=== PATIENT | female | born 1985 | race Caucasian/White ===

== ENCOUNTER → 2017-06-22 | Outpatient (CLI) | payer OTHER ==
[~2017-06-22] MED LIST: CHOL100010 PO; FERR325T51 PO
--- NOTE | 2017-06-22 13:32 | MAMMOGRAPHY REPORT ---
UNILATERAL LEFT DIGITAL DIAGNOSTIC MAMMOGRAM TOMOSYNTHESIS WITH CAD AND TARGETED LEFT ULTRASOUND: 05/30 CLINICAL HISTORY: 32-year-old woman with a palpable lump in the 12:00 left breast, that she describes as a small area of thickening on the top of the breast. No nipple discharge. Family history of raymundo ast cancer = mother's cousin. TECHNIQUE: Left breast tomosynthesis in addition to standard 2D mammography was performed. Current st udy was also evaluated with a Computer Aided Detection (CAD) system. COMPARISON: No prior exams were available for comparison. BREAST COMPOSITION: The tissue of the left breast is heterogeneously dense, which may obscure small masses. FINDINGS: A triangular palpable marker was placed overlying the skin of the 12:00 left breast, in the area of palpable lump pointed out by the patient. There is no suspicious mass, architectural distor tion or cluster of suspicious microcalcifications within the left breast, with particular attention t o the area of palpable concern. Targeted ultrasound was performed in the 11:00, 11:30 and 12:00 left breast in the area of palpable c oncern pointed out by the patient. Normal fibroglandular tissue is seen without a discrete solid or cystic mass. IMPRESSION: ACR BI-RADS CATEGORY 2: BENIGN, TARGETED ULTRASOUND ACR BI-RADS CATEGORY 2: BENIGN There is no mammographic or targeted sonographic evidence of malignancy. No suspicious mammographic or sonographic abnormality to explain the palpable lump and thickening pointed out by the patient, in the 11:30 to 12:00 left breast. Therefore, clinical follow-up is recommended, as biopsy of a clinic ally suspicious mass should not be precluded by negative imaging. These results and recommendations were discussed with the patient at the time of the exam. Approximately 10% of breast cancers are not detected with mammography. A negative mammographic report should not delay biopsy if a clinically suggestive mass is present. Catalina Killian M.D. ay/:06/22/2017 11:10:40 Return Agent Airport: Stephany FLORES)(Stevie), [facility] letter sent: Normal 1/2 BI-RADS Code: ACR BI-RADS Category 2: Benign Ultrasound BI-RADS: ACR BI-RADS Category 2: Benign
== END | disposition home or self-care (01) ==
LOC: C.MAMM 10:45
PROVIDERS: ATTEND Nurse Practitioner Women's Health
DX: N64.59 Other signs and symptoms in breast (principal); N63 Unspecified lump in breast